=== PATIENT | female | born 1965 | race Caucasian/White ===

== ENCOUNTER 2019-07-08 08:00 | Outpatient (CLI) | payer BC | END 2019-07-08 23:59 | disposition home or self-care (01) | LOC: D.MAMMO 08:00 | PROVIDERS: ATTEND Family Medicine | DX: Z12.31 Encounter for screening mammogram for malignant neoplasm of breast (principal) ==

== ENCOUNTER 2019-09-27 07:51 | Day surgery (SDC) | payer OTHER ==
[2019-09-27] VITALS (8 sets, daily range): BP systolic 95–119; BP diastolic 34–74; Ht 162.6 cm; Wt 123.4 kg
[~2019-09-27] VITALS: Ht 162.6 cm; Wt 123.4 kg
[~2019-09-27 07:51] MED LIST: ABILIFY10 MG PO; ASCORBIC ACID500 MG PO; CLARITIN 10 MG10 MG; EFFEXOR XR150 MG PO; LISINOPRIL5 MG PO; MELATONIN10 M1; OMEPRAZOLE20 M1; VITAMIN B-121000 MCG PO
[2019-09-27 08:29] LABS: HEMATOCRIT 41.8 % (36.0-48.0); HEMOGLOBIN 13.5 g/dL (12-16); MCH 29.5 pg (26.0-34.0); MCHC 32.3 g/dL (31.0-37.0); MCV 91.5 fL (80.0-100.0); MEAN PLATELET VOLUME 8.2 fL (7.4-10.4); RBC 4.57 10x6/uL (4.00-5.40); RDW 12.9 % (11.5-14.5); WBC 8.3 10x3/uL (4.8-10.8)
[2019-09-27] MEDS ORDERED: GLUCOSAMINE HC500 MG PO (13:39)
[2019-09-27 14:03] LABS: HCG URINE NEGATIVE (NEGATIVE)
--- NOTE | 2019-09-27 19:49 | NUR ---
PT ARRIVED TO UNIT VIA STRETCHER, ESCORTED BY OR NURSE. POSITIONED IN BED FOR COMFORT. VITALS STABLE. REPORTING SOME PAIN IN LEG. DRINKING WATER WITHOUT DIFFICULTY. DRESSING ON LEFT LEG CLEAN AND DRY. POST OP VITALS IN PROGRESS. PT IS AFEBRILE AT THIS ASSESSMENT.
--- NOTE | 2019-09-27 21:05 | NUR ---
PT ABLE TO KEEP DOWN FOOD AND LIQUIDS. VOIDED 400 ML YELLOW URINE.
--- NOTE | 2019-09-27 21:17 | NUR ---
REMOVED IV WITH CATHETER TIP INTACT. PRESSURE DRESSING APPLIED.
--- NOTE | 2019-09-27 21:17 | NUR ---
PERSCRIPTIONS GIVEN FOR NORCO AND COLACE, AND INSTRUCTED ON USE. POST OP INSTRUCTIONS GIVEN VERBALLY AND COPY TO PT.
--- NOTE | 2019-09-27 21:34 | NUR ---
PT ESCORTED TO FRONT EXIT VIA WHEELCHAIR TO AWAITING VEHICLE. INSTRUCTED TO CALL DR WARD OR RETURN TO ER IF ANY PROBLEMS ARISE.
--- NOTE | 2019-09-30 13:56 | OP ---
PATIENT NAME: CHIP THOMAS MEDICAL RECORD: [id number] :69 LOCATION:[id number] ADMISSION DATE:09/27/19 SURGEON: RAMAN WARD MD DATE OF OPERATION: 09/27/2019 PREOPERATIVE DIAGNOSES: 1. Pathologic greater saphenous venous reflux, left lower extremity. 2. Pathologic lesser saphenous venous reflux, left lower extremity. 3. Multiple symptomatic varicosities involving the left lower extremity. POSTOPERATIVE DIAGNOSES: 1. Pathologic greater saphenous venous reflux, left lower extremity. 2. Pathologic lesser saphenous venous reflux, left lower extremity. 3. Multiple symptomatic varicosities involving the left lower extremity. PROCEDURE: 1. VNUS radiofrequency ablation of the left greater saphenous vein. The length of the vein treated was 42.5 cm. 2. Stab avulsion phlebectomies times 33, left lower extremity. 3. Therapeutic foamed sclerotherapy, left lower extremity. SURGEON: Raman Ward MD MOLD WASHER: None. BLOOD LOSS: Minimal. ANESTHESIA: General. COMPLICATIONS: None. The risks, possible complications, and alternatives to the procedure were explained to the patient. She elects to proceed. I was planning on performing a radiofrequency ablation of both the greater and lesser saphenous veins on the left; however, when we turned the patient from the supine to the prone position, there was enough foam sclerosant within the lesser saphenous vein that I felt it was going to be difficult to access and the foam sclerosant would likely do the same job as the radiofrequency ablation procedure. Therefore, I did not try to perform radiofrequency ablation of the left lesser saphenous vein. OPERATIVE COURSE: The patient was conveyed to the holding area. In the presence of a female nurse, the varicosities involving the left lower extremity were marked. The patient was conveyed the operating room. She was positioned supine. The left lower extremity was sterilely prepped and draped. Subcutaneous Lovenox was given to the patient. She was positioned in the reverse Trendelenburg position. Under ultrasonographic guidance, I percutaneously accessed the left greater saphenous vein in an antegrade fashion. A guidewire passed easily. A 7-Lithuanian dilator sheath was advanced over the wire. The dilator and wire were removed. The sheath was sutured to the skin. Through the sheath, I advanced the radiofrequency catheter under ultrasonographic guidance to the saphenofemoral junction. I then withdrew it 2 cm into the greater saphenous vein. Under real time fluoroscopy, a tumescent crystalloid solution was used to infiltrate the perivenular tissues in order to OPERATIVE REPORT [id number] CHIP THOMAS provide a heat sink around the vein in order to protect surrounding vascular and nerve structures. She was positioned in the Trendelenburg position. The radiofrequency catheter was activated twice. With each 7 cm pullback, it was activated again. Endovascular hardware was removed. The puncture site was closed with a single 4-0 Vicryl Rapide suture. Small stab incisions were accomplished over the varicosities. Utilizing the phlebectomy hook, I removed some very large varicose veins. Under ultrasonographic guidance, I accessed several large deeper varicosities, which were not deep veins and these were treated with a foamed sclerosant. I then turned the patient supine. The left lower extremity was sterilely prepped and draped. I examined the left lower extremity under ultrasound and the left lesser saphenous vein was full of a foamed sclerosant. Additional deeper varicosities were accessed with a 27-gauge needle and injected with a foamed sclerosant. There was no significant extravasation of foamed sclerosant. Stab incisions were accomplished over the varicosities. Avulsion phlebectomies were performed. A sterile dressing was applied. The patient was then extubated and conveyed to post-anesthesia care unit where she was in stable condition. She will be dismissed home on [facility] [place] as well as [place]. I will see her in the office on Monday to have her dressings changed and switched to a compression garment. TRANSINT:[id number] Voice Confirmation ID: [id number] DOCUMENT ID: [id number] RAMAN WARD MD at 1356 CC: [id number] DICTATION DATE: 09/27/192111 [employer] TR[employer] DRIVER: 09/28/19 0437 DIS IN 09/27/19 [facility] [address] [id number]
== END 2019-09-27 21:35 | disposition home or self-care (01) ==
LOC: OBSVTIME → D.OPS 07:51 → D.PAN 12:45 → D.OPS 12:45 → D.MS 19:20 → OBSVTIME 19:26 → D.OPS 19:26 → D.MS 19:26
PROVIDERS: Anesthesiology; ATTEND Surgery
DX: I87.2 Venous insufficiency (chronic) (peripheral) (principal); I83.819 Varicose veins of unspecified lower extremity with pain